=== PATIENT | female | born 1975 | race African-American/Black ===

== ENCOUNTER 2018-01-04 04:07 | Emergency (ER) | payer MEDICAID ==
[~2018-01-04] VITALS: Ht 152.4 cm; Wt 59.0 kg
[2018-01-04 04:15] VITALS: BP 141/87
[2018-01-04] MEDS ORDERED: DIPHENHYDRAMINE 50MG CAPSULE PO ONE (04:45)
[2018-01-04] MEDS ORDERED: PREDNISONE 20MG TABLET PO ONE (04:45)
== END 2018-01-04 05:42 | disposition home or self-care (01) ==
LOC: ER 05:08
DX: T78.40XA Allergy, unspecified, initial encounter (principal); X58.XXXA Exposure to other specified factors, initial encounter; F17.200 Nicotine dependence, unspecified, uncomplicated
CPT/HCPCS: 99283; J7512; Q0163